=== PATIENT | female | born 1950 | race Caucasian/White ===

== ENCOUNTER → 2019-05-03 13:03 | Outpatient (CLI) | payer OTHER, SELFPAY ==
[2019-05-03 13:45] LABS: Add Manual Diff / Slide Review NO; Basophils Absolute Auto 0 /uL (0-100); Basophils Percent Auto 0.5 % (0-2); Eosinophils Absolute Auto 200 /uL (0-450); Eosinophils Percent Auto 2.2 % (2-4); Hematocrit 38.7 % (36-46); Hemoglobin 12.9 g/dL (12.0-16.0); Lymphocytes Absolute Auto 2300 /uL (1100-4500); Lymphocytes Percent Auto 31.8 % (25-40); Mean Corpuscular HGB Conc 33.3 % (30-36); Mean Corpuscular Hemoglobin 29.2 PG (26-34); Mean Corpuscular Volume 87.7 fL (80-100); Monocytes Absolute Auto 500 /uL (0-900); Monocytes Percent Auto 7.5 % (3-14); Neutrophils Absolute Auto 4300 /uL (1500-7000); Platelet Count 303 X10^3/uL (150-400); Red Blood Cell Count 4.41 X10^6/uL (4.0-5.2); Red Cell Distribution Width 13.6 % (11.6-14.8); White Blood Cell Count 7.3 X10^3/uL (4.5-11.0)
[2019-05-03 16:14] LABS: Alanine Aminotransferase 8 IU/L (9-52); Albumin 4.3 g/dL (3.5-5.0); Albumin Globulin Ratio 1.4 (1.0-2.8); Alkaline Phosphatase 35 U/L (38-126); Aspartate Aminotransferase 20 IU/L (14-36); Bilirubin Total 1.1 mg/dL (0.2-1.3); Blood Urea Nitrogen 13 mg/dL (7-17); C-Reactive Protein Quant 0.9 mg/dL (<1.0); Calcium 9.2 mg/dL (8.4-10.2); Carbon Dioxide 26 mmol/L (22-32); Chloride 104 mmol/L (98-107); Estimated Glomerular Filt Rate > 60.0 mL/min (>60); Glucose 101 mg/dL (80-110); HEMOLYSIS < 15 (0-50); Potassium 4.1 mmol/L (3.4-5.1); Sodium 140 mmol/L (137-145); Total Protein 7.3 g/dL (6.3-8.2)
[2019-05-03 16:45] LABS: TSH w/ Reflex to FT4 1.52 uIU/mL (0.47-4.68)
[2019-05-03 19:13] LABS: Hep C Virus Ab w/Reflex Quant NEGATIVE s/c (NEGATIVE)
[2019-05-03 20:39] LABS: Erythrocyte Sedimentation Rate 17 MM/HR (0-20)
[2019-05-06 20:17] LABS: ANA Screen, IFA Positive (Negative); ANA Titer 1:40 titer (<1:40)
[2019-05-08 22:05] LABS: Cryoglobulin, Qualitative NEGATIVE
== END ==
PROVIDERS: Visit Provider Internal Medicine
DX: M85.851 Other specified disorders of bone density and structure, right thigh (principal); Z78.0 Asymptomatic menopausal state; E03.9 Hypothyroidism, unspecified; E78.2 Mixed hyperlipidemia; R68.89 Other general symptoms and signs
CPT/HCPCS: 36415; 77080; 80053; 82595; 84443; 85025; 85651; 86038; 86140; 86803

== ENCOUNTER → 2019-09-28 11:09 | Outpatient (CLI) | payer OTHER, SELFPAY ==
[2019-09-28 12:56] LABS: TSH w/ Reflex to FT4 1.32 uIU/mL (0.47-4.68)
== END ==
PROVIDERS: PCP Internal Medicine; Visit Provider Internal Medicine
DX: E03.9 Hypothyroidism, unspecified (principal)
CPT/HCPCS: 36415; 84443

== ENCOUNTER 2019-12-27 10:09 | Emergency (ER) | payer OTHER, SELFPAY ==
[2019-12-27] VITALS (10 sets, daily range): BP systolic 144–186; BP diastolic 60–80; PULSE 62–92; RESP 12–22; TEMP 36.7; O2SAT 96–100; BMI 25.7
--- NOTE | 2019-12-27 10:12 | DI.RAD.S_ITS ---
PROCEDURE: XR CHEST 1V INDICATIONS: chest pain TECHNIQUE: One view of the chest was acquired. COMPARISON: None. FINDINGS: Surgical changes and devices: Peripherally calcified bilateral breast implants are identified. Surgical clips are seen within the epigastric region. Lungs and pleura: Lungs are clear. No pleural effusions or pneumothorax. Mediastinum: Mediastinal contours appear normal. Heart size is enlarged. Bones and chest wall: No suspicious bony lesions. Rightward curvature of the lumbar spine is not adequately characterize. Degenerative changes of the right shoulder and spine are also not well characterized. Overlying soft tissues appear unremarkable. IMPRESSION: Cardiomegaly without overt heart failure. No definite pneumonia. Dictated by: Devin Frazier M.D. on 12/27/2019 at 10:17 Approved by: Devin Frazier M.D. on 12/27/2019 at 10:18
[2019-12-27 10:31] LABS: Add Manual Diff / Slide Review NO; Basophils Absolute Auto 0 /uL (0-100); Basophils Percent Auto 0.6 % (0-2); Eosinophils Absolute Auto 300 /uL (0-450); Eosinophils Percent Auto 4.2 % (2-4); Hematocrit 39.2 % (36-46); Lymphocytes Absolute Auto 2800 /uL (1100-4500); Lymphocytes Percent Auto 42.4 % (25-40); Mean Corpuscular HGB Conc 33.3 % (30-36); Mean Corpuscular Hemoglobin 29.4 PG (26-34); Mean Corpuscular Volume 88.4 fL (80-100); Monocytes Absolute Auto 600 /uL (0-900); Monocytes Percent Auto 9.8 % (3-14); Neutrophils Absolute Auto 2800 /uL (1500-7000); Platelet Count 304 X10^3/uL (150-400); Red Blood Cell Count 4.43 X10^6/uL (4.0-5.2); Red Cell Distribution Width 13.5 % (11.6-14.8); White Blood Cell Count 6.6 X10^3/uL (4.5-11.0)
[2019-12-27 10:40] LABS: PTT Partial Thromboplastin Tim 28 SECONDS (26.4-36.2)
[2019-12-27 10:43] LABS: Alanine Aminotransferase 12 IU/L (<35); Albumin 4.2 g/dL (3.5-5.0); Albumin Globulin Ratio 1.4 (1.0-2.8); Alkaline Phosphatase 40 U/L (38-126); Aspartate Aminotransferase 20 IU/L (14-36); Bilirubin Total 0.9 mg/dL (0.2-1.3); Blood Urea Nitrogen 15 mg/dL (7-17); Calcium 9.1 mg/dL (8.4-10.2); Carbon Dioxide 29 mmol/L (22-32); Chloride 103 mmol/L (98-107); Creatine Kinase 42 U/L (30-135); Estimated Glomerular Filt Rate > 60.0 mL/min (>60); Globulin 3.1 g/dL (1.7-4.1); Glucose 96 mg/dL (80-110); HEMOLYSIS < 15 (0-50); Lipase 108 U/L (23-300); Potassium 3.8 mmol/L (3.4-5.1); Sodium 139 mmol/L (137-145); Total Protein 7.3 g/dL (6.3-8.2)
[2019-12-27 10:55] LABS: Troponin I < 0.012 ng/mL (0.01-0.034)
[2019-12-27 11:57] LABS: NT-proBNP (BNP-Adult 18+) 874 pg/mL (<125)
--- NOTE | 2019-12-27 12:19 | ED_ITS ---
HPI - Chest Pain <CHECO Ronquillo - Last Filed: 12/27/19 17:58> General Chief Complaint: Chest Pain Stated Complaint: sent from walk in clinic,chest pain Time Seen by Provider: 12/27/19 10:55 Source: patient Mode of arrival: Ambulatory Limitations: no limitations History of Present Illness HPI narrative: The patient is a 69-year-old female nonsmoker with history of restless legs syndrome, sleep apnea who presents with a chief complaint of chest pain. She states that she had pain across her back radiating to her chest, left arm and up into her left ear 3 weeks ago. She has had 1 recurrence. She states that it started after she was lifting lots of boxes and sporting equipment. She denies any current chest pain, palpitations, swelling of the extremities, nausea vomiting diarrhea. She states overall she feels fine right now. She was sent from the walk-in clinic. She states she does has a family history of cardiac disease. She did lose her last fall. She denies any fevers. She denies any cough or congestion. She denies any personal history of cardiac disease. She states that her pain got better when she took Tylenol and some Celebrex. 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 Related Data Home Medications Medication Instructions Recorded Confirmed Respironics DreamStation Auto CPAP #1 ea 11/23/18 12/27/19 citalopram 20 mg tablet 40 mg PO DAILY 01/13/19 12/27/19 atorvastatin 10 mg PO DAILY 12/27/19 12/27/19 azelastine 1 spray INTRANASAL BID 12/27/19 12/27/19 celecoxib 200 mg PO DAILY 12/27/19 12/27/19 dextroamphetamine-amphetamine 10 mg PO BID 12/27/19 12/27/19 gabapentin 600 mg PO QPM 12/27/19 12/27/19 levothyroxine 100 mcg PO DIRECTED 12/27/19 12/27/19 Allergies Allergy/AdvReac Type Severity Reaction Status Date / Time No Known Drug Allergies Allergy Verified 12/27/19 10:23 Review of Systems <CHECO Ronquillo - Last Filed: 12/27/19 17:58> Review of Systems Narrative: GENERAL: Denies chills, fatigue, malaise, fever, sweats. HEENT: Denies sinus pain, ear pain, sore throat, difficulty swallowing, dizziness. RESPIRATORY: See HPI CARDIOVASCULAR: Denies chest pain, palpitations, orthopnea, edema, GASTROINTESTINAL: Denies nausea, vomiting, abdominal pain, diarrhea, const ipation, melena. : Denies dysuria, frequency, incontinence, hematuria, urinary retention. MUSCULOSKELETAL: See HPI SKIN: Denies rash, skin lesions, or other NEUROLOGIC: Denies weakness, headache, numbness, change in speech, confusion, seizures, incoordination. PSYCHIATRIC: No concerning psychosocial issues. 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 Normocephalic. No temporal or scalp tenderness. EYES: Pupils equal round and reactive. Extraocular motions intact. No scleral icterus. No injection or drainage. ENT: Nose without bleeding, purulent drainage or septal hematoma. Throat without erythema, tonsillar hypertrophy or exudate. Uvula midline. Airway patent. NECK: Trachea midline. No JVD or lymphadenopathy. Supple, nontender, no me ningeal signs. CARDIOVASCULAR: Regular rate and rhythm RESPIRATORY: Clear to auscultation. Breath sounds equal bilaterally. No wheezes, rales, or rhonchi. No cough. No increased respiratory effort. No accessory muscle use. GASTROINTESTINAL: Abdomen soft, non-tender, nondistended. No hepato-splen omegaly, or palpable masses. No guarding. EXTREMITIES: No clubbing, cyanosis, or edema. No joint tenderness, effusion, or edema noted. BACK: Nontender without deformity or crepitance. No flank tenderness. NEURO: AOx3. SKIN: No rash or erythema. Initial Vital Signs Initial Vital Signs: Vital Signs Temperature 98.1 F 12/27/19 10:18 Pulse Rate 71 12/27/19 10:18 Respiratory Rate 12 12/27/19 10:18 Blood Pressure 186/77 H 12/27/19 10:18 Pulse Oximetry 98 12/27/19 10:18 <Evelyn Avila DO - Last Filed: 12/28/19 18:50> Initial Vital Signs Initial Vital Signs: Vital Signs Temperature 98.1 F 12/27/19 10:18 Pulse Rate 71 12/27/19 10:18 Respiratory Rate 12 12/27/19 10:18 Blood Pressure 186/77 H 12/27/19 10:18 Pulse Oximetry 98 12/27/19 10:18 Course <ROJAS Ronquillo-BC - Last Filed: 12/27/19 17:58> Orders Ordered: ED Orders 12/27/19 10:12 XR chest 1V Stat EKG-12 Lead Stat 12/27/19 10:20 Complete Blood Count AUTO DIFF Stat Comprehensive Metabolic Panel Stat Lipase Stat NT-proBNP (BNP-Adult 18+) Stat Partial Thromboplastin Time Stat Prothrombin Time INR Stat Troponin & CK Cardiac Panel Stat 12/27/19 13:09 Troponin & CK Cardiac Panel Stat Vital Signs Vital signs: Vital Signs - 8 hr 12/27/19 10:18 12/27/19 10:30 12/27/19 11:00 Temperature 98.1 F Pulse Rate 71 71 63 Respiratory Rate 12 19 13 Blood Pressure 186/77 H Blood Pressure [Left Arm] 164/71 H 175/80 H Pulse Oximetry 98 97 99 12/27/19 11:30 12/27/19 12:00 12/27/19 12:30 Temperature Pulse Rate 63 75 62 Respiratory Rate 22 16 13 Blood Pressure Blood Pressure [Left Arm] 169/72 H 172/73 H 186/79 H Pulse Oximetry 97 98 98 12/27/19 13:00 12/27/19 13:30 12/27/19 14:00 Temperature Pulse Rate 65 63 67 Respiratory Rate 17 20 18 Blood Pressure Blood Pressure [Left Arm] 171/76 H 171/78 H 178/73 H Pulse Oximetry 97 96 97 12/27/19 14:59 Temperature Pulse Rate 92 H Respiratory Rate Blood Pressure 144/60 H Blood Pressure [Left Arm] Pulse Oximetry 100 <Evelyn Avila DO - Last Filed: 12/28/19 18:50> Orders Ordered: ED Orders 12/27/19 10:12 XR chest 1V Stat EKG-12 Lead Stat 12/27/19 10:20 Complete Blood Count AUTO DIFF Stat Comprehensive Metabolic Panel Stat Lipase Stat NT-proBNP (BNP-Adult 18+) Stat Partial Thromboplastin Time Stat Prothrombin Time INR Stat Troponin & CK Cardiac Panel Stat 12/27/19 13:09 Troponin & CK Cardiac Panel Stat Vital Signs Vital signs: Vital Signs - 8 hr 12/27/19 10:18 12/27/19 10:30 12/27/19 11:00 Temperature 98.1 F Pulse Rate 71 71 63 Respiratory Rate 12 19 13 Blood Pressure 186/77 H Blood Pressure [Left Arm] 164/71 H 175/80 H Pulse Oximetry 98 97 99 12/27/19 11:30 12/27/19 12:00 12/27/19 12:30 Temperature Pulse Rate 63 75 62 Respiratory Rate 22 16 13 Blood Pressure Blood Pressure [Left Arm] 169/72 H 172/73 H 186/79 H Pulse Oximetry 97 98 98 12/27/19 13:00 12/27/19 13:30 12/27/19 14:00 Temperature Pulse Rate 65 63 67 Respiratory Rate 17 20 18 Blood Pressure Blood Pressure [Left Arm] 171/76 H 171/78 H 178/73 H Pulse Oximetry 97 96 97 12/27/19 14:59 Temperature Pulse Rate 92 H Respiratory Rate Blood Pressure 144/60 H Blood Pressure [Left Arm] Pulse Oximetry 100 MDM - Chest Pain <ROJAS Ronquillo-BC - Last Filed: 12/27/19 17:58> Lab Data Result diagrams: 12/27/19 10:20 12/27/19 10:20 Labs: Lab Results 12/27/19 12/27/19 12/27/19 Range/Units 10:20 10:20 10:20 WBC 6.6 (4.5-11.0) X10^3/uL RBC 4.43 (4.0-5.2) X10^6/uL Hgb 13.0 (12.0-16.0) g/dL Hct 39.2 (36-46) % MCV 88.4 (80-100) fL MCH 29.4 (26-34) PG MCHC 33.3 (30-36) % RDW 13.5 (11.6-14.8) % Plt Count 304 (150-400) X10^3/uL Neut % (Auto) 43.0 L (50-75) % Lymph % (Auto) 42.4 H (25-40) % [place] % (Auto) 9.8 (3-14) % Eos % (Auto) 4.2 H (2-4) % Baso % (Auto) 0.6 (0-2) % Neut # (Auto) 2800 (3264-8384) /uL Lymph # (Auto) 2800 (7768-1176) /uL [place] # (Auto) 600 (0-900) /uL Eos # (Auto) 300 (0-450) /uL Baso # (Auto) 0 (0-100) /uL PT 11.0 (10.1-12.7) SECONDS INR 1.0 (0.9-1.3) APTT 28 (26.4-36.2) SECONDS Sodium 139 (137-145) mmol/L Potassium 3.8 (3.4-5.1) mmol/L Chloride 103 (98-107) mmol/L Carbon Dioxide 29 (22-32) mmol/L BUN 15 (7-17) mg/dL Creatinine 0.50 L (0.52-1.04) mg/dL Estimated GFR > 60.0 (>60) mL/min BUN/Creatinine Ratio 30.0 H (6-22) Glucose 96 (80-110) mg/dL Calcium 9.1 (8.4-10.2) mg/dL Total Bilirubin 0.9 (0.2-1.3) mg/dL AST 20 (14-36) IU/L ALT 12 (<35) IU/L Alkaline Phosphatase 40 (38-126) U/L Total Creatine Kinase 42 (30-135) U/L CK-MB (CK-2) TNP CK-MB (CK-2) Rel Index TNP Troponin I < 0.012 (0.01-0.034) ng/mL NT-Pro-B Natriuret Pep (<125) pg/mL Total Protein 7.3 (6.3-8.2) g/dL Albumin 4.2 (3.5-5.0) g/dL Globulin 3.1 (1.7-4.1) g/dL Albumin/Globulin Ratio 1.4 (1.0-2.8) Lipase 108 (23-300) U/L 12/27/19 12/27/19 Range/Units 10:20 13:09 WBC (4.5-11.0) X10^3/uL RBC (4.0-5.2) X10^6/uL Hgb (12.0-16.0) g/dL Hct (36-46) % MCV (80-100) fL MCH (26-34) PG MCHC (30-36) % RDW (11.6-14.8) % Plt Count (150-400) X10^3/uL Neut % (Auto) (50-75) % Lymph % (Auto) (25-40) % [place] % (Auto) (3-14) % Eos % (Auto) (2-4) % Baso % (Auto) (0-2) % Neut # (Auto) (4654-5494) /uL Lymph # (Auto) (0388-2895) /uL [place] # (Auto) (0-900) /uL Eos # (Auto) (0-450) /uL Baso # (Auto) (0-100) /uL PT (10.1-12.7) SECONDS INR (0.9-1.3) APTT (26.4-36.2) SECONDS Sodium (137-145) mmol/L Potassium (3.4-5.1) mmol/L Chloride (98-107) mmol/L Carbon Dioxide (22-32) mmol/L BUN (7-17) mg/dL Creatinine (0.52-1.04) mg/dL Estimated GFR (>60) mL/min BUN/Creatinine Ratio (6-22) Glucose (80-110) mg/dL Calcium (8.4-10.2) mg/dL Total Bilirubin (0.2-1.3) mg/dL AST (14-36) IU/L ALT (<35) IU/L Alkaline Phosphatase (38-126) U/L Total Creatine Kinase 38 (30-135) U/L CK-MB (CK-2) TNP CK-MB (CK-2) Rel Index TNP Troponin I < 0.012 (0.01-0.034) ng/mL NT-Pro-B Natriuret Pep 874 H (<125) pg/mL Total Protein (6.3-8.2) g/dL Albumin (3.5-5.0) g/dL Globulin (1.7-4.1) g/dL Albumin/Globulin Ratio (1.0-2.8) Lipase (23-300) U/L Imaging Data Chest x-ray: Radiologist's Impression: [address] [place] [id number] XRay Report Signed Patient: Arleen Rodriguez [facility] [place]#: [id number] : 1950Acct:[id number] Age/Sex: 69 / FDate of Service: 12/27/19 Loc: ED Accession Number: [id number] Procedure: XR chest 1V Ordering Provider: Evelyn Avila D.O. PROCEDURE: XR CHEST 1V INDICATIONS: chest pain TECHNIQUE: One view of the chest was acquired. COMPARISON: None. FINDINGS: Surgical changes and devices: Peripherally calcified bilateral breast implants are identified. Surgical clips are seen within the epigastric region. Lungs and pleura: Lungs are clear. No pleural effusions or pneumothorax. Mediastinum: Mediastinal contours appear normal. Heart size is enlarged. Bones and chest wall: No suspicious bony lesions. Rightward curvature of the lumbar spine is not adequately characterize. Degenerative changes of the right shoulder and spine are also not well characterized. Overlying soft tissues appear unremark able. IMPRESSION: Cardiomegaly without overt heart failure. No definite pneumonia. Dictated by: Devin Frazier M.D. on 12/27/2019 at 10:17 Approved by: Devin Frazier M.D. on 12/27/2019 at 10:18 ECG Data Attestation: I personally reviewed and interpreted this ECG as follows: Interpretation: Sinus rhythm. Ventricular rate 71. No ectopy noted. No ST elevation depression noted. P.r. interval 150. QRS duration 82. viewed by Dr Austin LOUIS Narrative Medical decision making narrative: The patient is a 69-year-old female presents with a chief complaint of an episode of chest pain 2-3 weeks ago. Described as shoulder back neck pain up to her ear. She had a recurrence last week. She thinks it is from lifting, which correlates with her history. She has negative troponin, -3 hour troponin, negative x-ray normal EKG. Her BNP is slightly elevated, but she has no symptoms of fluid retention, no edema crackles or shortness of breath. Discussed with Dr Avila and agreed to hold off on diuretics at this point time. Discussed at length with patient that she should probably have a stress test, echo etcetera outpatient given her family history. Discussed at length follow up with primary care provider as well as come back to the emergency department for any acute concerns. Patient has been pain-free t hroughout her stay in the emergency department. No questions or concerns upon discharge states understanding of return precautions of any acute concerns of RI stroke etcetera as well as follow-up care. <Evelyn Avila, DO - Last Filed: 12/28/19 18:50> Lab Data Labs: Lab Results 12/27/19 12/27/19 12/27/19 Range/Units 10:20 10:20 10:20 WBC 6.6 (4.5-11.0) X10^3/uL RBC 4.43 (4.0-5.2) X10^6/uL Hgb 13.0 (12.0-16.0) g/dL Hct 39.2 (36-46) % MCV 88.4 (80-100) fL MCH 29.4 (26-34) PG MCHC 33.3 (30-36) % RDW 13.5 (11.6-14.8) % Plt Count 304 (150-400) X10^3/uL Neut % (Auto) 43.0 L (50-75) % Lymph % (Auto) 42.4 H (25-40) % [place] % (Auto) 9.8 (3-14) % Eos % (Auto) 4.2 H (2-4) % Baso % (Auto) 0.6 (0-2) % Neut # (Auto) 2800 (0647-3943) /uL Lymph # (Auto) 2800 (5547-7609) /uL [place] # (Auto) 600 (0-900) /uL Eos # (Auto) 300 (0-450) /uL Baso # (Auto) 0 (0-100) /uL PT 11.0 (10.1-12.7) SECONDS INR 1.0 (0.9-1.3) APTT 28 (26.4-36.2) SECONDS Sodium 139 (137-145) mmol/L Potassium 3.8 (3.4-5.1) mmol/L Chloride 103 (98-107) mmol/L Carbon Dioxide 29 (22-32) mmol/L BUN 15 (7-17) mg/dL Creatinine 0.50 L (0.52-1.04) mg/dL Estimated GFR > 60.0 (>60) mL/min BUN/Creatinine Ratio 30.0 H (6-22) Glucose 96 (80-110) mg/dL Calcium 9.1 (8.4-10.2) mg/dL Total Bilirubin 0.9 (0.2-1.3) mg/dL AST 20 (14-36) IU/L ALT 12 (<35) IU/L Alkaline Phosphatase 40 (38-126) U/L Total Creatine Kinase 42 (30-135) U/L CK-MB (CK-2) TNP CK-MB (CK-2) Rel Index TNP Troponin I < 0.012 (0.01-0.034) ng/mL NT-Pro-B Natriuret Pep (<125) pg/mL Total Protein 7.3 (6.3-8.2) g/dL Albumin 4.2 (3.5-5.0) g/dL Globulin 3.1 (1.7-4.1) g/dL Albumin/Globulin Ratio 1.4 (1.0-2.8) Lipase 108 (23-300) U/L 12/27/19 12/27/19 Range/Units 10:20 13:09 WBC (4.5-11.0) X10^3/uL RBC (4.0-5.2) X10^6/uL Hgb (12.0-16.0) g/dL Hct (36-46) % MCV (80-100) fL MCH (26-34) PG MCHC (30-36) % RDW (11.6-14.8) % Plt Count (150-400) X10^3/uL Neut % (Auto) (50-75) % Lymph % (Auto) (25-40) % [place] % (Auto) (3-14) % Eos % (Auto) (2-4) % Baso % (Auto) (0-2) % Neut # (Auto) (1481-8725) /uL Lymph # (Auto) (2651-0131) /uL [place] # (Auto) (0-900) /uL Eos # (Auto) (0-450) /uL Baso # (Auto) (0-100) /uL PT (10.1-12.7) SECONDS INR (0.9-1.3) APTT (26.4-36.2) SECONDS Sodium (137-145) mmol/L Potassium (3.4-5.1) mmol/L Chloride (98-107) mmol/L Carbon Dioxide (22-32) mmol/L BUN (7-17) mg/dL Creatinine (0.52-1.04) mg/dL Estimated GFR (>60) mL/min BUN/Creatinine Ratio (6-22) Glucose (80-110) mg/dL Calcium (8.4-10.2) mg/dL Total Bilirubin (0.2-1.3) mg/dL AST (14-36) IU/L ALT (<35) IU/L Alkaline Phosphatase (38-126) U/L Total Creatine Kinase 38 (30-135) U/L CK-MB (CK-2) TNP CK-MB (CK-2) Rel Index TNP Troponin I < 0.012 (0.01-0.034) ng/mL NT-Pro-B Natriuret Pep 874 H (<125) pg/mL Total Protein (6.3-8.2) g/dL Albumin (3.5-5.0) g/dL Globulin (1.7-4.1) g/dL Albumin/Globulin Ratio (1.0-2.8) Lipase (23-300) U/L Discharge Plan Departure Patient Disposition: Home Clinical Impression: Atypical chest pain, Elevated brain natriuretic peptide (BNP) level Discharge Date/Time: 12/27/19 14:59 Instructions: DI for Atypical Chest Pain, DI for Chest Pain Activity Restrictions/Additional Instructions: As discussed, your workup today came back largely normal. Please come back to the emergency department for any acute concerns. Please follow-up with primary care provider in the next few days. Given her family history, further evaluation such as a stress test or echo might be useful. I have given you contact information for [facility] health electronic resources librarian. They can help match with primary care provider. Please come back to the emergency department for any acute concerns such as concern of heart attack or stroke etcetera Prescriptions: No Action celecoxib 200 mg Capsule 200 mg PO DAILY RF: 0 atorvastatin 10 mg Tablet 10 mg PO DAILY RF: 0 dextroamphetamine-amphetamine 10 mg Tablet 10 mg PO BID RF: 0 levothyroxine 100 mcg Tablet 100 mcg PO DIRECTED RF: 0 azelastine 0.15 % (205.5 mcg) [place],Non-Aerosol 1 spray INTRANASAL BID RF: 0 gabapentin 300 mg capsule 600 mg PO QPM RF: 0 (DME) Respironics DreamStation Auto CPAP Qty: 1 RF: 0 citalopram [Celexa] 20 mg tablet 40 mg PO DAILY RF: 0 Referrals: [facility] [Outside] Sisi Briggs MD [Primary Care Provider] -
[2019-12-27 13:43] LABS: Creatine Kinase 38 U/L (30-135)
[2019-12-27 13:56] LABS: Troponin I < 0.012 ng/mL (0.01-0.034)
== END 2019-12-27 14:59 | disposition home or self-care (01) ==
PROVIDERS: Emergency Medicine; Emergency Provider Nurse Practitioner Family; PCP Internal Medicine
DX: R07.89 Other chest pain (principal); R79.89 Other specified abnormal findings of blood chemistry; R03.0 Elevated blood-pressure reading, without diagnosis of hypertension
CPT/HCPCS: 36415; 71045; 80053; 82550; 83690; 83880; 84484; 85025; 85610; 85730; 93005; 99284; 99285

== ENCOUNTER → 2020-02-15 13:39 | Outpatient (CLI) | payer OTHER, SELFPAY ==
--- NOTE | 2020-02-15 13:44 | DI.RAD.S_ITS ---
PROCEDURE: XR CHEST 2V INDICATIONS: cardiomegaly TECHNIQUE: 2 views of the chest were acquired. COMPARISON: [facility], , XR CHEST 1V, 12/27/2019, 10:16. FINDINGS: Surgical changes and devices: Bilateral peripherally calcified breast implants again noted. Several surgical clips are present in the epigastrium.. Lungs and pleura: Lungs are clear. No pleural effusions or pneumothorax. Mediastinum: Mediastinal contours are normal. Heart size is normal. Bones and chest wall: No suspicious bony abnormalities. Soft tissues appear unremarkable. IMPRESSION: Cardiomegaly does not appear present by plain film criteria. Incidental note is made of overlying bilateral breast implants. No pneumonia seen. Dictated by: Cabrera Major M.D. on 02/15/2020 at 14:07 Approved by: Cabrera Major M.D. on 02/15/2020 at 14:08
[2020-02-15 15:34] LABS: BUN Creatinine Ratio 23.5 (6-22); Blood Urea Nitrogen 12 mg/dL (7-17); Calcium 9.6 mg/dL (8.4-10.2); Carbon Dioxide 28 mmol/L (22-32); Chloride 104 mmol/L (98-107); Estimated Glomerular Filt Rate > 60.0 mL/min (>60); Glucose 113 mg/dL (80-110); HEMOLYSIS < 15 (0-50); Potassium 4.4 mmol/L (3.4-5.1); Sodium 139 mmol/L (137-145)
[2020-02-15 15:38] LABS: NT-proBNP (BNP-Adult 18+) 878 pg/mL (<125)
== END ==
PROVIDERS: PCP Internal Medicine; Referring Provider Internal Medicine; Visit Provider Internal Medicine
DX: I51.7 Cardiomegaly (principal); E78.5 Hyperlipidemia, unspecified
CPT/HCPCS: 36415; 71046; 80048; 83880

== ENCOUNTER → 2020-02-28 07:59 | Outpatient (CLI) | payer OTHER, SELFPAY ==
--- NOTE | 2020-02-28 08:05 | DI.ECHO.S_ITS ---
Echocardiogram Report + + :Name: DEONDRE SHINE Study Date: 02/28/2020 Height: 63 in : :[facility] Weight: 145 lb : : Gender: Other BSA: 1.7 m2 : :: 1950 Age: 69 yrs BP: 138/72 mmHg: :Reason For Study: cardiomegaly : :Ordering Physician: Dr. Haro : :Iris Performed By: Maritza Boyer : :Referring: Dr. Tahir Simmons : + + Interpretation Summary 1) Normal left ventricular size, thickness, wall motion, and systolic function (EF 60-65%). 2) Normal right ventricular size and function. 3) No significant valvular abnormalities. 4) No prior Echo available for comparison. Procedure: A two-dimensional transthoracic echocardiogram with color flow and Doppler was performed. The study quality was technically adequate. There is no prior echocardiogram noted for this patient. The patient was in normal sinus rhythm during the exam. Left Ventricle: The left ventricle is normal in size and wall thickness. The ejection fraction is estimated to be 60-65%. Left ventricular systolic function is normal without focal wall motion abnormalities. Diastolic parameters suggest a relaxation abnormality of the left ventricle, consistent with probable normal filling pressures. Right Ventricle: The right ventricle is normal in size and function. Atria: Both atria are normal in size. There is no Doppler evidence for an interatrial shunt. Mitral Valve: The mitral valve is normal in structure and function. There is trace mitral regurgitation. Aortic Valve: Aortic valve not well visualized but appears trileaflet. There is no aortic valve stenosis. No aortic regurgitation is present. Tricuspid Valve: The tricuspid valve is normal in structure and function. There is trace tricuspid regurgitation. The right ventricular systolic pressure is estimated to be at least 26 mmHg based on an estimated right atrial pressure of 3 mm Hg. Pulmonic Valve: The pulmonic valve is normal in structure and function. There is no pulmonic valvular regurgitation. Great Vessels: The aortic root is normal size. The ascending aorta could not be visualized. The IVC is of normal diameter and collapses greater than 50% with a sniff. This suggests a low right atrial pressure of 3 mm Hg. Pericardium/ Pleura There is no pericardial effusion. There is no pleural effusion. MMode/2D Measurements & Calculations LVIDd: 3.5 cm LVOT diam: 2.0 cm LVIDs: 2.3 cm Ao root diam: 3.0 cm FS: 34.3 % EPSS: 0.56 cm IVSd: 1.0 cm LVPWd: 1.0 cm LV marie. diameter/BSA (cm/m^2): 2.1 LV sys. diameter/BSA (cm/m^2): 1.4 LA A2 area: 16.9 cm2 RA long axis: 4.5 cm LA A4 area: 17.6 cm2 RA area: 12.4 cm2 LA length (vol): 4.7 cm RA vol: 29.2 ml LA vol: 53.8 ml RA : 17.3 ml/m2 LA vol index: 31.9 ml/m2 RVD1 (basal): 3.6 cm TAPSE: 1.9 cm Doppler Measurements & Calculations Ao V2 max: 162.5 cm/sec LVOT Max Montrell: 104.9 cm/sec Ao V2 mean: 106.6 cm/sec LV V1 max P.4 mmHg Ao max P.6 mmHg LV V1 VTI: 26.5 cm Ao mean P.2 mmHg MARIALUISA(I,D): 2.1 cm2 Ao V2 VTI: 38.1 cm MARIALUISA(V,D): 2.0 cm2 sev ratio: 0.70 MARIALUISA indexed to BSA (cm^2/m^2): 1.3 MV E max montrell: 69.3 cm/sec TR max montrell: 243.3 cm/sec MV A max montrell: 111.5 cm/sec TR max P.7 mmHg MV E/A: 0.62 PA V2 max: 69.3 cm/sec Med Peak E' Montrell: 5.0 cm/sec PA V2 mean: 48.8 cm/sec E/E' med: 14.0 PA mean P.1 mmHg Lat Peak E' Montrell: 6.3 cm/sec E/E' lat: 10.9 E/e' average: 12.4 MV dec time: 0.23 sec SV(LVOT): 80.5 ml _ Reading Physician:12:20 PM
== END ==
PROVIDERS: PCP Internal Medicine; Referring Provider Internal Medicine; Visit Provider Internal Medicine
DX: I51.7 Cardiomegaly (principal)
CPT/HCPCS: 93306

== ENCOUNTER → 2020-04-23 12:59 | Outpatient (CLI) | payer OTHER, SELFPAY ==
--- NOTE | 2020-04-23 13:03 | DI.RAD.S_ITS ---
PROCEDURE: XR SHOULDER LT MIN 2V INDICATIONS: arthritis present TECHNIQUE: 3 views of the shoulder were acquired. COMPARISON: [facility], CR, XR SHOULDER 2+ VIEWS BILATERAL, 07/15/2018, 13:46. FINDINGS: Bones: No fractures or dislocations. No suspicious bony lesions. Visualized ribs appear intact. Scattered degenerative subchondral sclerosis and spurring. Bulky osteophytes seen at the inferior anatomic humeral head. Soft tissues: No suspicious soft tissue calcifications. 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 No definite interval change since 07/15/18. Dictated by: Ja Lopez M.D. on 04/23/2020 at 15:31 Approved by: Ja Lopez M.D. on 04/23/2020 at 15:33
--- NOTE | 2020-04-23 13:40 | DI.RAD.S_ITS ---
PROCEDURE: XR SHOULDER RT MIN 2V INDICATIONS: Shoulder pain TECHNIQUE: 3 views of the shoulder were acquired. COMPARISON: [facility], CR, XR SHOULDER 2+ VIEWS BILATERAL, 07/15/2018, 13:46. [facility], CR, XR SHOULDER LT MIN 2V, 04/23/2020, 13:30. FINDINGS: Bones: No fractures or dislocations. No suspicious bony lesions. Visualized ribs appear intact. The severe right shoulder joint degeneration with bulky osteophyte formation at the inferior aspect of the anatomic humeral head. No definite interval change. Soft tissues: No suspicious soft tissue calcifications. Partially visualized breast prosthesis. IMPRESSION: Right shoulder joint degeneration with bulky osteophyte formation, without definite interval change since 07/15/18 Dictated by: Ja Lopez M.D. on 04/23/2020 at 15:33 Approved by: aJ Lopez M.D. on 04/23/2020 at 15:35
== END ==
PROVIDERS: PCP Internal Medicine; Referring Provider Internal Medicine; Visit Provider Internal Medicine
DX: M25.512 Pain in left shoulder; M25.511 Pain in right shoulder; M19.011 Primary osteoarthritis, right shoulder; M19.012 Primary osteoarthritis, left shoulder; M25.619 Stiffness of unspecified shoulder, not elsewhere classified
CPT/HCPCS: 73030

== ENCOUNTER → 2020-12-25 08:54 | Outpatient (CLI) | payer OTHER, SELFPAY ==
[2020-12-25 09:55] LABS: Alanine Aminotransferase 11 IU/L (<35); Albumin 3.9 g/dL (3.5-5.0); Albumin Globulin Ratio 1.2 (1.0-2.8); Alkaline Phosphatase 37 U/L (38-126); Aspartate Aminotransferase 22 IU/L (14-36); BUN Creatinine Ratio 26.2 (6-22); Bilirubin Total 0.7 mg/dL (0.2-1.3); Blood Urea Nitrogen 16 mg/dL (7-17); Calcium 9.3 mg/dL (8.4-10.2); Carbon Dioxide 36 mmol/L (22-32); Chloride 102 mmol/L (98-107); Cholesterol 199 mg/dL (140-199); Estimated Glomerular Filt Rate > 60.0 mL/min (>60); Globulin 3.2 g/dL (1.7-4.1); Glucose 109 mg/dL (80-110); HDL Cholesterol 78 mg/dL (40-60); HEMOLYSIS < 15 (0-50); LDL Cholesterol Calculated 100 mg/dL (<100); Potassium 4.7 mmol/L (3.4-5.1); Sodium 138 mmol/L (137-145); Total Protein 7.1 g/dL (6.3-8.2); Triglycerides 105 mg/dL (35-150)
[2020-12-25 10:13] LABS: Free T4, Direct Thyroxine 1.29 ng/dL (0.78-2.19)
[2020-12-25 10:27] LABS: Thyroid Stimulating Hormone 1.07 uIU/mL (0.47-4.68)
== END ==
PROVIDERS: PCP Internal Medicine; Referring Provider Internal Medicine; Visit Provider Internal Medicine
DX: E03.9 Hypothyroidism, unspecified (principal); E78.5 Hyperlipidemia, unspecified
CPT/HCPCS: 36415; 80053; 80061; 84439; 84443

== ENCOUNTER → 2022-01-01 08:44 | Outpatient (CLI) | payer OTHER, SELFPAY ==
[2022-01-01 10:14] LABS: Alanine Aminotransferase 11 IU/L (<35); Albumin 4.2 g/dL (3.5-5.0); Albumin Globulin Ratio 1.6 (1.0-2.8); Alkaline Phosphatase 30 U/L (38-126); Aspartate Aminotransferase 23 IU/L (14-36); BUN Creatinine Ratio 17.6 (6-22); Bilirubin Total 0.9 mg/dL (0.2-1.3); Blood Urea Nitrogen 12 mg/dL (7-17); Calcium 8.8 mg/dL (8.4-10.2); Carbon Dioxide 33 mmol/L (22-32); Chloride 101 mmol/L (98-107); Cholesterol 198 mg/dL (140-199); Estimated Glomerular Filt Rate > 60.0 mL/min (>60); Globulin 2.7 g/dL (1.7-4.1); Glucose 104 mg/dL (80-110); HDL Cholesterol 85 mg/dL (40-60); HEMOLYSIS < 15 (0-50); LDL Cholesterol Calculated 97 mg/dL (<100); Potassium 3.8 mmol/L (3.4-5.1); Sodium 137 mmol/L (137-145); Total Protein 6.9 g/dL (6.3-8.2); Triglycerides 81 mg/dL (35-150)
[2022-01-01 10:36] LABS: Free T4, Direct Thyroxine 1.15 ng/dL (0.78-2.19)
[2022-01-01 10:50] LABS: Thyroid Stimulating Hormone 3.87 uIU/mL (0.47-4.68)
== END ==
PROVIDERS: PCP Internal Medicine; Referring Provider Internal Medicine; Visit Provider Internal Medicine
DX: E78.2 Mixed hyperlipidemia (principal); E03.9 Hypothyroidism, unspecified
CPT/HCPCS: 36415; 80053; 80061; 84439; 84443

== ENCOUNTER → 2022-08-05 14:23 | Outpatient (CLI) | payer OTHER, SELFPAY ==
[2022-08-05 16:45] LABS: Alanine Aminotransferase 9 IU/L (<35); Albumin 4.1 g/dL (3.5-5.0); Albumin Globulin Ratio 1.4 (1.0-2.8); Alkaline Phosphatase 35 U/L (38-126); Aspartate Aminotransferase 22 IU/L (14-36); BUN Creatinine Ratio 21.2 (6-22); Bilirubin Total 0.6 mg/dL (0.2-1.3); Blood Urea Nitrogen 11 mg/dL (7-17); Calcium 8.8 mg/dL (8.4-10.2); Carbon Dioxide 30 mmol/L (22-32); Chloride 103 mmol/L (98-107); Estimated Glomerular Filt Rate > 60 mL/min (>60); Glucose 81 mg/dL (80-110); HEMOLYSIS < 15 (0-50); Potassium 3.8 mmol/L (3.4-5.1); Sodium 140 mmol/L (137-145); Total Protein 7.1 g/dL (6.3-8.2)
[2022-08-05 17:06] LABS: Free T4, Direct Thyroxine 1.54 ng/dL (0.78-2.19)
[2022-08-05 17:20] LABS: Thyroid Stimulating Hormone 0.679 uIU/mL (0.47-4.68)
== END ==
PROVIDERS: PCP Internal Medicine; Referring Provider Internal Medicine; Visit Provider Internal Medicine
DX: E03.9 Hypothyroidism, unspecified (principal); E78.2 Mixed hyperlipidemia
CPT/HCPCS: 36415; 80053; 84439; 84443

== ENCOUNTER → 2023-07-03 08:17 | Outpatient (CLI) | payer MEDICARE, SELFPAY ==
[2023-07-03 09:24] LABS: Alanine Aminotransferase 14 IU/L (<35); Albumin 3.7 g/dL (3.5-5.0); Albumin Globulin Ratio 1.4 (1.0-2.8); Alkaline Phosphatase 32 U/L (38-126); Aspartate Aminotransferase 19 IU/L (14-36); Blood Urea Nitrogen 13 mg/dL (7-17); Calcium 8.7 mg/dL (8.4-10.2); Carbon Dioxide 33 mmol/L (22-32); Chloride 102 mmol/L (98-107); Cholesterol 199 mg/dL (140-199); Estimated Glomerular Filt Rate > 60 mL/min (>60); Globulin 2.6 g/dL (1.7-4.1); Glucose 104 mg/dL (80-110); HDL Cholesterol 84 mg/dL (40-60); HEMOLYSIS < 15 (0-50); LDL Cholesterol Calculated 100 mg/dL (<100); Potassium 4.2 mmol/L (3.4-5.1); Sodium 138 mmol/L (137-145); Total Protein 6.3 g/dL (6.3-8.2); Triglycerides 75 mg/dL (35-150)
[2023-07-03 09:46] LABS: Free T4, Direct Thyroxine 1.63 ng/dL (0.78-2.19)
[2023-07-03 10:00] LABS: Thyroid Stimulating Hormone 0.297 uIU/mL (0.47-4.68)
== END ==
PROVIDERS: PCP Internal Medicine; Referring Provider Internal Medicine; Visit Provider Internal Medicine
DX: E03.9 Hypothyroidism, unspecified (principal); E78.5 Hyperlipidemia, unspecified
CPT/HCPCS: 36415; 80053; 80061; 84439; 84443

== ENCOUNTER → 2023-12-02 11:22 | Outpatient (CLI) | payer MEDICARE, SELFPAY | PROVIDERS: PCP Internal Medicine; Referring Provider Internal Medicine; Visit Provider Internal Medicine | DX: R05.9 Cough, unspecified (principal) | CPT/HCPCS: 94060; 94726; 94729 ==

== ENCOUNTER → 2024-05-10 11:51 | Outpatient (CLI) | payer MEDICARE, SELFPAY ==
[2024-05-10 14:43] LABS: Add Manual Diff / Slide Review NO; Basophils Absolute Auto 0 /uL (0-100); Basophils Percent Auto 0.5 % (0-2); Eosinophils Absolute Auto 400 /uL (0-450); Eosinophils Percent Auto 4.9 % (2-4); Hematocrit 36.6 % (36-46); Hemoglobin 12.2 g/dL (12.0-16.0); Lymphocytes Absolute Auto 2400 /uL (1100-4500); Lymphocytes Percent Auto 29.8 % (25-40); Mean Corpuscular HGB Conc 33.3 % (30-36); Mean Corpuscular Hemoglobin 29.5 PG (26-34); Mean Corpuscular Volume 88.5 fL (80-100); Monocytes Absolute Auto 500 /uL (0-900); Monocytes Percent Auto 6.2 % (3-14); Neutrophils Absolute Auto 4700 /uL (1500-7000); Neutrophils Percent Auto 58.6 % (50-75); Platelet Count 331 X10^3/uL (150-400); Red Blood Cell Count 4.13 X10^6/uL (4.0-5.2); Red Cell Distribution Width 13.5 % (11.6-14.8); White Blood Cell Count 8.1 X10^3/uL (4.5-11.0)
[2024-05-10 15:06] LABS: Erythrocyte Sedimentation Rate 16 MM/HR (0-20)
[2024-05-10 15:13] LABS: Alanine Aminotransferase 10 IU/L (<35); Albumin Globulin Ratio 1.5 (1.0-2.8); Alkaline Phosphatase 40 U/L (38-126); Aspartate Aminotransferase 22 IU/L (14-36); BUN Creatinine Ratio 33.3 (6-22); Bilirubin Total 1.1 mg/dL (0.2-1.3); Blood Urea Nitrogen 18 mg/dL (7-17); C-Reactive Protein Quant < 0.5 mg/dL (<1.0); Calcium 9.1 mg/dL (8.4-10.2); Carbon Dioxide 27 mmol/L (22-32); Chloride 107 mmol/L (98-107); Estimated Glomerular Filt Rate > 60 mL/min (>60); Globulin 2.7 g/dL (1.7-4.1); Glucose 92 mg/dL (80-110); HEMOLYSIS < 15 (0-50); Potassium 5.1 mmol/L (3.4-5.1); Sodium 139 mmol/L (137-145); Total Protein 6.7 g/dL (6.3-8.2)
[2024-05-10 15:25] LABS: Free T4, Direct Thyroxine 1.16 ng/dL (0.78-2.19)
[2024-05-10 15:39] LABS: Thyroid Stimulating Hormone 4.05 uIU/mL (0.47-4.68)
== END ==
PROVIDERS: PCP Internal Medicine; Referring Provider Internal Medicine; Visit Provider Internal Medicine
DX: E03.9 Hypothyroidism, unspecified (principal); E78.5 Hyperlipidemia, unspecified; D64.9 Anemia, unspecified; R61 Generalized hyperhidrosis
CPT/HCPCS: 36415; 80053; 84439; 84443; 84481; 85025; 85651; 86140

== ENCOUNTER → 2025-07-24 13:04 | Outpatient (CLI) | payer MEDICARE, SELFPAY ==
[2025-07-24 13:54] LABS: Add Manual Diff / Slide Review NO; Hematocrit 37.2 % (36-46); Hemoglobin 12.7 g/dL (12.0-16.0); Lymphocytes Absolute Auto 2400 /uL (1100-4500); Mean Corpuscular HGB Conc 34.0 % (30-36); Mean Corpuscular Hemoglobin 29.8 PG (26-34); Mean Corpuscular Volume 87.5 fL (80-100); Platelet Count 359 X10^3/uL (150-400)
[2025-07-24 14:23] LABS: Alanine Aminotransferase 11 IU/L (<35); Albumin 4.1 g/dL (3.5-5.0); Albumin Globulin Ratio 1.6 (1.0-2.8); Alkaline Phosphatase 46 U/L (38-126); Blood Urea Nitrogen 14 mg/dL (7-17); Calcium 9.1 mg/dL (8.4-10.2); Carbon Dioxide 27 mmol/L (22-32); Chloride 104 mmol/L (98-107); Estimated Glomerular Filt Rate > 60 mL/min (>60); Globulin 2.6 g/dL (1.7-4.1); Glucose 94 mg/dL (70-99); HEMOLYSIS < 15 (0-50); Potassium 4.6 mmol/L (3.4-5.1); Sodium 138 mmol/L (137-145); Total Protein 6.7 g/dL (6.3-8.2)
[2025-07-24 14:38] LABS: Free T3, Triiodothyronine Free 3.31 pg/mL (2.77-5.27); Free T4, Direct Thyroxine 1.12 ng/dL (0.78-2.19)
[2025-07-24 14:51] LABS: Thyroid Stimulating Hormone 9.56 uIU/mL (0.47-4.68)
== END ==
PROVIDERS: PCP Internal Medicine; Referring Provider Internal Medicine; Visit Provider Internal Medicine
DX: E03.9 Hypothyroidism, unspecified (principal); E78.5 Hyperlipidemia, unspecified
CPT/HCPCS: 36415; 80053; 84439; 84443; 84481; 85025